=== PATIENT | male | born 2000 | race American Indian/Alaskan Native ===

== ENCOUNTER 2021-06-02 14:59 | Outpatient (CLI) | payer OTHER, SELFPAY ==
[2021-06-02 15:31] LABS: Alanine Aminotransferase 19 U/L (4-50); Alkaline Phosphatase 61 U/L (38-126); Anion Gap 11 mmol/L (8-16); Aspartate Amino Transferase 24 U/L (17-59); Bilirubin,Total 0.6 mg/dL (0.2-1.3); Blood Urea Nitrogen 21 mg/dL (9-20); Calcium 9.6 mg/dL (8.4-10.2); Carbon Dioxide 25 mmol/L (22-30); Chloride 104 mmol/L (98-107); Estimated Glomerular Filt Rate > 60; Glucose 112 mg/dL (65-110); Potassium 4.3 mmol/L (3.4-5.0); Sodium 140 mmol/L (137-145)
== END 2021-06-02 15:00 | disposition home or self-care (01) ==
PROVIDERS: PCP Family Medicine; Visit Provider Nurse Practitioner Family
DX: R19.8 Other specified symptoms and signs involving the digestive system and abdomen (principal)
CPT/HCPCS: 36415; 80053

== ENCOUNTER → 2021-07-02 09:25 | Outpatient (CLI) | payer OTHER, SELFPAY ==
--- NOTE | ~2021-07-02 | US_ITS ---
EXAMINATION: US abdomen complete DATE: 07/02/2021 09:50 INDICATION: Generalized abdominal pain TECHNIQUE: Multiple grayscale and Doppler ultrasound images of the abdomen were obtained. COMPARISON: None available FINDINGS: The head, body, and tail of the pancreas are normal. The liver is normal with normal echoge nicity and echotexture. No surface nodularity. Normal hepatopetal flow in the main portal vein. The g allbladder is normal with no abnormal wall thickening, pericholecystic fluid or stones. The normal co mmon bile duct measures 2 mm. There was no sonographic Vincent sign. The visualized portions of the ao rta and inferior vena cava are normal. The right kidney measures 9.9 x 5 x 5.2 cm. The left kidney measures 10.5 x 5.9 x 4.6 cm. The kidneys demonstrate normal parenchymal echogenicity. There is no hydronephrosis. The spleen is normal in luis earance and measures 10.2 cm. IMPRESSION: 1. No sonographic correlate for the patient's symptoms. Reviewed, dictated and finalized at location A. [facility]
== END ==
PROVIDERS: PCP Family Medicine; Visit Provider Nurse Practitioner Family
DX: R19.8 Other specified symptoms and signs involving the digestive system and abdomen (principal)
CPT/HCPCS: 76700

== ENCOUNTER 2021-12-16 12:00 | Outpatient (CLI) | payer OTHER, SELFPAY ==
[2021-12-16 13:33] LABS: Hepatitis C Virus Antibody Negative (Negative)
[2021-12-19 19:43] LABS: Hepatitis Be Antibody Nonreactive
== END 2021-12-16 12:01 | disposition home or self-care (01) ==
PROVIDERS: PCP Family Medicine; Visit Provider Nurse Practitioner Family
DX: Z71.85 Encounter for immunization safety counseling (principal)
CPT/HCPCS: 36415; 86707; 86803

== ENCOUNTER 2023-01-26 12:08 | Emergency (ER) | payer OTHER, SELFPAY ==
--- NOTE | 2023-01-26 12:11 | ED.URI ---
HPI - URI/Sore Throat General Chief Complaint: Ear Stated Complaint: Injured right ear; trouble hearing Time Seen by Provider: 01/26/23 12:11 Source: patient and RN notes reviewed History of Present Illness HPI Narrative: Patient is a 22-year-old male who presents to urgent care with complaints of right ear pain. Patient states that he jumped off a diving board yesterday and felt a pop in the ear. Patient states that initially it did cause him a lot of pain down into the jaw. States that he now has muffled hearing. Patient has taken ibuprofen. No other acute complaints. No acute distress noted. Patient aware of the plan of care. Some parts of this dictation were generated by voice recognition software and may contain typographical and/or grammatical inaccuracies. Related Data Allergies Allergy/AdvReac Type Severity Reaction Status Date / Time No Known Allergies Allergy Verified 01/26/23 12:20 Review of Systems Review of Systems: CONSTITUTIONAL: Denies fever, chills, or sweats. EYES: Denies visual changes, redness, or discharge. ENT: Reports muscle hearing and right otalgia CARDIOVASCULAR: Denies chest pain, palpitations, or edema. RESPIRATORY: Denies cough or dyspnea. GASTROINTESTINAL: Denies abdominal pain, nausea, vomiting, or diarrhea. GENITOURINARY: Denies dysuria or hematuria. SKIN: Denies rash or itching. MUSCULOSKELETAL: Denies back pain, joint pain, or myalgia. NEUROLOGIC: Denies headache, numbness, or weakness. All other systems reviewed are negative, except as documented in HPI. [facility] Past Medical History Medical History BMI between 19-24,adult Family History Family History Father Hypertension Mother No problems noted. Sibling No problems noted. 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 There is no relevant family history pertinent to the patient complaint. Exam Narrative: GENERAL: This is a well-nourished, well-developed patient, in no apparent distress. HEAD: normocephalic, atraumatic. EYES: PERRL. Sclera clear/white. Vision is grossly intact. EARS: External ears normal, left auditory canals clear and without drainage, ruptured TM to the right with surrounding erythema and clear drainage. Left TM normal without perforation. Hearing grossly intact. NOSE: External nose normal with no obvious nasal discharge, nares without redness, no rhinorrhea. THROAT: Mucous membranes moist NECK: Neck supple, SKIN: warm, intact with no suspicious lesions or rash, good texture and turgor. NEURO: awake, alert, and oriented to person, place and time. There were no obvious focal neurologic abnormalities. EXTREMITIES: No clubbing, cyanosis, or edema. Course Course Level of Care: Express Care Visit Vital Signs Vital signs: Vital Signs Temperature 98 F 01/26/23 12:21 Pulse Rate 55 L 01/26/23 12:21 Respiratory Rate 16 01/26/23 12:21 Blood Pressure 137/55 L 01/26/23 12:21 Pulse Oximetry 100 01/26/23 12:21 Temperature 98 F 01/26/23 12:21 Pulse Rate 55 L 01/26/23 12:21 Respiratory Rate 16 01/26/23 12:21 Blood Pressure 137/55 L 01/26/23 12:21 Pulse Oximetry 100 01/26/23 12:21 Reviewed MDM - URI/Sore Throat MDM Narrative Medical decision
[2023-01-26 12:21] VITALS: BP 137/55; PULSE 55; RESP 16; TEMP 36.6; O2SAT 100
== END 2023-01-26 12:37 | disposition home or self-care (01) ==
PROVIDERS: Emergency Provider Nurse Practitioner Family; PCP Family Medicine
DX: H65.91 Unspecified nonsuppurative otitis media, right ear (principal); H72.91 Unspecified perforation of tympanic membrane, right ear
CPT/HCPCS: 99213; G0463